=== PATIENT | male | born 1975 ===

== ENCOUNTER 2018-11-30 02:36 | Emergency (ER) | payer BC ==
[2018-11-30] MEDS ORDERED: KEFLEX PO ONE (06:40)
[2018-11-30] MEDS ORDERED: NORCO 5/325 PO ONE (06:40)
[2018-11-30] MEDS ORDERED: BOOSTRIX IM ONE (06:40)
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
[2018-11-30 07:09] VITALS: BP 92/59
== END 2018-11-30 07:10 | disposition home or self-care (01) ==
LOC: ED 02:36
DX: S01.511A Laceration without foreign body of lip, initial encounter (principal); Y04.8XXA Assault by other bodily force, initial encounter; Y93.89 Activity, other specified; Y92.89 Other specified places as the place of occurrence of the external cause; Y99.8 Other external cause status
CPT/HCPCS: 90471; 90715; 99282